=== PATIENT | male | born 1955 | race Caucasian/White ===

== ENCOUNTER → 2017-05-18 | Outpatient (CLI) | payer OTHER ==
[~2017-05-18] MED LIST: ATOR20TA15 PO; CYAN1TAB24 PO; HYDR-3516 PO; METF500T PO; METR1TAB76 PO; MOBI7.5T PO; NEOM500 PO; OMEP20TA93 PO; VICT18IN SQ
[2017-05-18 10:40] LABS: AUTOMATED NEUTROPHIL # 4.3 TH/MM3 (1.8-7.7); BASOPHIL % 0.5 % (0.0-2.0); EOSINOPHIL # 0.2 TH/MM3 (0-0.4); EOSINOPHIL % 2.4 % (0.0-4.0); HEMATOCRIT 41.1 % (39.0-51.0); HEMOGLOBIN 13.6 GM/DL (13.0-17.0); LYMPH % 27.5 % (9.0-44.0); LYMPHOCYTE # 1.9 TH/MM3 (1.0-4.8); MEAN CELL VOLUME 81.4 FL (80.0-100.0); MEAN CORPUSCULAR HGB CONC 33.2 % (32.0-36.0); MEAN PLATELET VOLUME 10.9 FL (7.0-11.0); MONO % 6.5 % (0.0-8.0); MONOCYTE # 0.4 TH/MM3 (0-0.9); NEUT % 63.1 % (16.0-70.0); PLATELET COUNT 174 TH/MM3 (150-450); RED BLOOD COUNT 5.05 MIL/MM3 (4.50-5.90); WHITE BLOOD COUNT 6.9 TH/MM3 (4.0-11.0)
--- NOTE | 2017-05-18 10:55 | RADRPT ---
EXAM DATE/TIME: 05/18/2017 10:47 [facility] COMPARISON: No previous studies available for comparison. INDICATIONS : Pre op. Evaluate for pneumonia, pneumothorax, or communicable diseases. MEDICAL HISTORY : None. SURGICAL HISTORY : None. ENCOUNTER: Initial ACUITY: 1 day PAIN SCORE: 0/10 LOCATION: Bilateral chest FINDINGS: PA and lateral views of the chest demonstrate the lungs to be symmetrically aerated without evidence of mass, infiltrate or effusion. The cardiomediastinal contours are unremarkable. Osseous structure s are intact. CONCLUSION: 1. No acute cardiopulmonary disease. Pavel Shannon MD on May 18, 2017 at 10:50 Board Certified Radiologist. This report was verified electronically.
[2017-05-18 11:11] LABS: BILIRUBIN, URINE NEG (NEG); BLOOD, URINE NEG (NEG); GLUCOSE,URINE NEG (NEG); HYALINE CAST, URINE 1 /lpf (RARE); KETONE, URINE NEG (NEG); MUCUS URINE FEW /lpf (OCC); NITRITE,URINE NEG (NEG); SQUAMOUS EPITHELIAL CELL URINE <1 /hpf (0-5); URINE COLOR YELLOW (YELLW/STRAW); URINE LEUKOCYTE ESTERASE NEG (NEG)
[2017-05-18 11:13] LABS: ALBUMIN 3.5 GM/DL (3.4-5.0); ALT (GPT) 47 U/L (12-78); AST (GOT) 21 U/L (15-37); BICARBONATE 29.6 MEQ/L (21.0-32.0); CALCIUM 8.9 MG/DL (8.5-10.1); CHLORIDE 104 MEQ/L (98-107); CREATININE 0.84 MG/DL (0.60-1.30); GLOMERULAR FILTRATION RATE 94 ML/MIN (>89); GLUCOSE,FASTING 161 MG/DL (74-99); SODIUM (NA) 139 MEQ/L (136-145)
[2017-05-18 11:21] LABS: ALKALINE PHOSPHATASE 107 U/L (45-117); BLOOD UREA NITROGEN 11 MG/DL (7-18); TOTAL BILIRUBIN ADULT 0.5 MG/DL (0.2-1.0); TOTAL PROTEIN 7.1 GM/DL (6.4-8.2)
[2017-05-18 11:33] LABS: INTERNATIONAL NORMALIZED RATIO 1.1 RATIO; PROTHROMBIN TIME - PATIENT 10.7 SEC (9.8-11.6)
--- NOTE | 2017-05-18 19:43 | EKG ---
Date Performed: 05/18/2017 Time Performed: 10:30:40 PTAGE: 61 years EKG: Sinus rhythm . Normal ECG PREVIOUS TRACING : 08/01/2004 21.16 Since previous tracing, no significant change noted DOCTOR: Sujey Moraes Interpretating Date/Time 05/18/2017 19:41:27
== END ==
LOC: CPRE 09:33
PROVIDERS: ATTEND Colon & Rectal Surgery
DX: Z01.812 Encounter for preprocedural laboratory examination (principal); Z01.811 Encounter for preprocedural respiratory examination; Z01.810 Encounter for preprocedural cardiovascular examination; C18.7 Malignant neoplasm of sigmoid colon
CPT/HCPCS: 36415; 71046; 80053; 81001; 82378; 85025; 85610; 85730; 86850; 86900; 86901; 93005

== ENCOUNTER 2017-05-20 10:25 | Inpatient (IN) | payer OTHER ==
[2017-05-20] VITALS (7 sets, daily range): BP systolic 130–145; BP diastolic 74–83; PULSE 100–108; RESP 18–20; TEMP 97–99.6; O2SAT 93–95
[~2017-05-20] VITALS: Ht 172.7 cm; Wt 116.0 kg
[~2017-05-20 10:25] MED LIST changes: -CYAN1TAB24 PO; -HYDR-3516 PO; -MOBI7.5T PO
--- NOTE | 2017-05-20 10:27 | PD.HP.UP ---
H&P Update Note The Pre-Admit History and Physical Examination regarding the above named patient was reviewed (including, but not limited to, vital signs, heart, lungs, co-morbid conditions), and upon re-examination it is noted that: the patient's condition has not significantly changed since the last examination. Salinas Barillas MD May 20, 2017 10:27
[2017-05-20] MEDS ORDERED: DEXT 5%-NACL 0.9% 1000 ML INJ 1,000 ML IV SCH (11:00)
[2017-05-20] MEDS ORDERED: METOPROLOL TARTRATE 25 MG TAB PO PRN (11:15)
[2017-05-20] MEDS ORDERED: METRONIDAZOLE 500 MG/100 ML ISONTONIC SOLN IV SCH (11:15)
[2017-05-20] MEDS ORDERED: SODIUM CHLORID 0.9% 500 ML IV PRN (11:15)
[2017-05-20] MEDS ORDERED: ceFAZolin 1,000 MG/NS 100 ML IV SCH ×2 (11:15)
[2017-05-20] MEDS ORDERED: CHLORHEXIDINE GLUCONATE 2 % 1 PACK (2 CLOTHS) TOPICAL PRN (11:15)
[2017-05-20] MEDS ORDERED: LACTATED RINGER'S 1000 ML IV PRN (11:15)
[2017-05-20] MEDS ORDERED: POVIDONE IODINE 5% (ANTISEPSIS KIT) 4 APPLICATIONS EACH NARE PRN (11:15)
[2017-05-20] MEDS ORDERED: CYAN1TAB24 PO (11:28)
[2017-05-20] MEDS ORDERED: ALVIMOPAN 12 MG CAPSULE ONE (11:43)
[2017-05-20] MEDS ORDERED: ACETAMINOPHEN 1000 MG/100 ML 100 ML IV ONE (11:53)
[2017-05-20] MEDS ORDERED: SUGAMMADEX SODIUM 200 MG/2 ML VIAL IV PUSH ONE (11:54)
[2017-05-20] MEDS ORDERED: NEOSTIGMINE 5 MG/5 ML SYRINGE IV PUSH ONE (12:00)
[2017-05-20] MEDS ORDERED: ONDANSETRON HCL 4 MG/2 ML VIAL IV ONE (12:00)
[2017-05-20] MEDS ORDERED: PHENYLEPH/NS 1000 MCG/10 ML SYR IV ONE (12:00)
[2017-05-20] MEDS ORDERED: PROPOFOL 200 MG/20 ML AMP IV ONE (12:00)
[2017-05-20] MEDS ORDERED: GLYCOPYRROLATE 1 MG/5 ML SYRINGE IV PUSH ONE (12:00)
[2017-05-20] MEDS ORDERED: SODIUM CHLORIDE 0.9% 20 ML VIAL IV ONE (12:00)
[2017-05-20] MEDS ORDERED: LACTATED RINGER'S 1000 ML INJ 1,000 ML IV ONE (12:00)
[2017-05-20] MEDS ORDERED: VECURONIUM BROMIDE 20 MG VIAL IV ONE (12:00)
[2017-05-20] MEDS ORDERED: LIDOCAINE HCL 1% PF 5 ML SYRINGE OTHER ONE (12:00)
[2017-05-20] MEDS ORDERED: ePHEDrine/NS 25 MG/5 ML SYRINGE IV ONE (12:00)
[2017-05-20] MEDS ORDERED: LABETALOL HCL 100 MG/20 ML VIAL IV ONE (12:00)
[2017-05-20] MEDS ORDERED: ROCURONIUM INJ 50 MG/5 ML SYRINGE IV PUSH ONE (12:00)
[2017-05-20] MEDS ORDERED: ALVIMOPAN 12 MG CAPSULE - On Call PO SCH (12:30)
[2017-05-20] MEDS ORDERED: diphenhydrAMINE HCL 50 MG CAP PO PRN (12:30)
[2017-05-20] MEDS ORDERED: BUPIVACAINE HCL PF 0.5% 30 ML VIAL ONE ×4 (13:12→13:13)
[2017-05-20] MEDS ORDERED: MIDAZOLAM HCL 2 MG/2 ML VIAL ONE (14:22)
[2017-05-20] MEDS ORDERED: Post-op Orders (for Pharmacy) XX ONE (16:00)
[2017-05-20] MEDS ORDERED: NALOXONE HCL 0.4 MG/ML AMP IV PUSH PRN (16:00)
[2017-05-20] MEDS ORDERED: DO NOT ADM ANY ANTICOAGULANT DRUGS PRN (16:00)
[2017-05-20] MEDS ORDERED: BUPIVACAINE HCL PF 0.5% 30 ML VIAL NB SCH (16:00)
[2017-05-20] MEDS ORDERED: KETOROLAC TROMETHAMINE 30 MG/ML (IVP) VIAL IVP PRN (16:00)
[2017-05-20] MEDS ORDERED: POTASSIUM CHLOR 20 MEQ PREMIX 100 ML IV PRN (16:00)
[2017-05-20] MEDS ORDERED: POTASSIUM CHLOR 40 MEQ PREMIX 100 ML IV PRN (16:00)
[2017-05-20] MEDS ORDERED: MORPHINE SULFATE 30 MG/30 ML PCA IV SCH (16:00)
[2017-05-20] MEDS ORDERED: ACETAMINOPHEN 325 MG TAB PO PRN (16:00)
[2017-05-20] MEDS ORDERED: ENALAPRILAT 1.25 MG/ML VIAL IV PUSH PRN (16:00)
[2017-05-20] MEDS ORDERED: BENZOCAINE 6 MG/MENTHOL 10 MG LOZENGE BUCCAL PRN (16:00)
[2017-05-20] MEDS ORDERED: hydrALAZINE HCL 20 MG/ML VIAL ONE (16:13)
[2017-05-20] MEDS ORDERED: *morphine SULFATE 10 MG/ML PERIprocedure ONLY ONE ×2 (16:13→16:29)
[2017-05-20] MEDS ORDERED: GLUCAGON 1 MG/ML VIAL OTHER PRN (16:15)
[2017-05-20] MEDS ORDERED: DEXTROSE 50% IN WATER 50 ML VIAL(D50) IV PUSH PRN (16:15)
[2017-05-20] MEDS: D5-NS + KCL 20 MEQ INJ 1,000 ML IV SCH (17:00)
[2017-05-20] MEDS ORDERED: *PROMETHAZINE 25 MG/ML VIAL PERIprocedural use ONLY ONE (17:21)
[2017-05-20] MEDS: INSULIN NovoLIN REGULAR SUPPLEMENTAL SCALE SQ SCH ×2 (18:01→20:48)
[2017-05-20] MEDS: METOCLOPRAMIDE HCL 10 MG/2 ML VIAL IVS SCH (20:38)
[2017-05-20] MEDS: metroNIDAZOLE 500 MG INJ 100 ML IV SCH (21:29)
[2017-05-20] MEDS: PCA - TOTAL MG MORPHINE DELIVERED PER SHIFT SCH (22:00)
[2017-05-21] VITALS (21 sets, daily range): BP systolic 91–182; BP diastolic 51–88; PULSE 84–108; RESP 17–20; TEMP 98–99.9; O2SAT 94–98
[2017-05-21] MEDS: D5-NS + KCL 20 MEQ INJ 1,000 ML IV SCH ×3 (00:38→20:04)
[2017-05-21 04:32] LABS: AUTOMATED NEUTROPHIL # 10.9 TH/MM3 (1.8-7.7); BASOPHIL % 0.2 % (0.0-2.0); HEMATOCRIT 38.2 % (39.0-51.0); HEMOGLOBIN 12.5 GM/DL (13.0-17.0); LYMPH % 5.4 % (9.0-44.0); LYMPHOCYTE # 0.7 TH/MM3 (1.0-4.8); MEAN CELL VOLUME 82.5 FL (80.0-100.0); MEAN CORPUSCULAR HGB CONC 32.7 % (32.0-36.0); MEAN PLATELET VOLUME 10.5 FL (7.0-11.0); MONO % 5.8 % (0.0-8.0); MONOCYTE # 0.7 TH/MM3 (0-0.9); NEUT % 88.6 % (16.0-70.0); PLATELET COUNT 171 TH/MM3 (150-450); RED BLOOD COUNT 4.63 MIL/MM3 (4.50-5.90); WHITE BLOOD COUNT 12.3 TH/MM3 (4.0-11.0)
[2017-05-21] MEDS: metroNIDAZOLE 500 MG INJ 100 ML IV SCH ×2 (04:40→11:41)
[2017-05-21 05:01] LABS: BICARBONATE 27.2 MEQ/L (21.0-32.0); CALCIUM 7.4 MG/DL (8.5-10.1); CREATININE 0.98 MG/DL (0.60-1.30)
[2017-05-21 05:23] LABS: CALCIUM-PROTEIN CORRECTED 7.8 MG/DL (8.5-10.1); TOTAL PROTEIN 6.3 GM/DL (6.4-8.2)
[2017-05-21] MEDS: PCA - TOTAL MG MORPHINE DELIVERED PER SHIFT SCH ×3 (06:00→22:00)
--- NOTE | 2017-05-21 07:50 | HHI.PR ---
Subjective Remarks C/R Surg POD #1 afebrile, VSS UO good FABIAN serous Objective - Vital Signs Date Time Temp Pulse Resp B/P (MAP) Pulse Ox O2 Delivery O2 Flow Rate FiO2 05/21/17 06:02 97 05/21/17 06:00 18 05/21/17 03:31 99.9 91/51 (64) 97 05/20/17 20:57 Nasal Cannula 3.00 Result Diagram: 05/21/1740205/21/173 Objective Remarks PE alert Abd - soft, large, wound dry, min tympany A/P Assessment and Plan Imp: stable post-op OOB tx to floor decr IVF Salinas Barillas MD May 21, 2017 07:50
[2017-05-21] MEDS: PANTOPRAZOLE SODIUM 40 MG VIAL IVP SCH (09:00)
[2017-05-21] MEDS: METOCLOPRAMIDE HCL 10 MG/2 ML VIAL IVS SCH ×2 (09:02→19:44)
[2017-05-21] MEDS: ALVIMOPAN 12 MG CAPSULE - Post-op dosing PO SCH ×2 (09:03→19:44)
[2017-05-21] MEDS: INSULIN NovoLIN REGULAR SUPPLEMENTAL SCALE SQ SCH ×4 (09:03→19:47)
[2017-05-21] MEDS: PANTOPRAZOLE SOD 40 MG DELAYED RELEASE TAB PO SCH (09:03)
[2017-05-21] MEDS ORDERED: ALVIMOPAN 12 MG CAPSULE PO SCH (21:00)
[2017-05-22] VITALS: BP 198/97; PULSE 100; RESP 20; TEMP 99.8; O2SAT 98
[2017-05-22] MEDS: ENALAPRILAT 2.5 MG/2 ML VIAL IV PUSH PRN ×3 (00:29→16:28)
[2017-05-22 04:32] VITALS: BP 180/92; PULSE 100; RESP 18; TEMP 99.9; O2SAT 96
[2017-05-22] MEDS: PCA - TOTAL MG MORPHINE DELIVERED PER SHIFT SCH ×3 (05:31→21:46)
[2017-05-22] MEDS: D5-NS + KCL 20 MEQ INJ 1,000 ML IV SCH ×2 (05:33→17:45)
[2017-05-22 07:32] LABS: AUTOMATED NEUTROPHIL # 8.5 TH/MM3 (1.8-7.7); BASOPHIL % 0.4 % (0.0-2.0); EOSINOPHIL % 0.1 % (0.0-4.0); HEMATOCRIT 35.6 % (39.0-51.0); HEMOGLOBIN 11.8 GM/DL (13.0-17.0); LYMPH % 11.4 % (9.0-44.0); LYMPHOCYTE # 1.2 TH/MM3 (1.0-4.8); MEAN CELL VOLUME 82.1 FL (80.0-100.0); MEAN CORPUSCULAR HEMOGLOBIN 27.3 PG (27.0-34.0); MEAN CORPUSCULAR HGB CONC 33.3 % (32.0-36.0); MEAN PLATELET VOLUME 10.7 FL (7.0-11.0); MONO % 8.2 % (0.0-8.0); MONOCYTE # 0.9 TH/MM3 (0-0.9); NEUT % 79.9 % (16.0-70.0); PLATELET COUNT 151 TH/MM3 (150-450); RED BLOOD COUNT 4.33 MIL/MM3 (4.50-5.90); RED CELL DISTRIBUTION WIDTH 15.2 % (11.6-17.2); WHITE BLOOD COUNT 10.6 TH/MM3 (4.0-11.0)
[2017-05-22 08:00] VITALS: BP 192/101; PULSE 97; RESP 18; TEMP 97.9; O2SAT 96
[2017-05-22] MEDS: PANTOPRAZOLE SODIUM 40 MG VIAL IVP SCH (08:42)
[2017-05-22] MEDS: INSULIN NovoLIN REGULAR SUPPLEMENTAL SCALE SQ SCH ×4 (08:47→21:45)
[2017-05-22] MEDS: FUROSEMIDE 20 MG/2 ML VIAL IV PUSH SCH ×2 (08:47→21:45)
[2017-05-22] MEDS: METOCLOPRAMIDE HCL 10 MG/2 ML VIAL IVS SCH ×2 (08:48→21:44)
[2017-05-22] MEDS: ALVIMOPAN 12 MG CAPSULE - Post-op dosing PO SCH ×2 (08:49→21:46)
[2017-05-22] MEDS: PANTOPRAZOLE SOD 40 MG DELAYED RELEASE TAB PO SCH (08:49)
[2017-05-22 08:51] LABS: BICARBONATE 29.2 MEQ/L (21.0-32.0); CREATININE 0.75 MG/DL (0.60-1.30)
[2017-05-22 12:00] VITALS: BP 176/86; PULSE 97; RESP 18; TEMP 98; O2SAT 93
[2017-05-22 16:00] VITALS: BP 179/91; PULSE 93; RESP 19; TEMP 97.7; O2SAT 95
--- NOTE | 2017-05-22 17:34 | HHI.PR ---
Subjective Remarks C/R Surg POD #2 afebrile, VSS - Bp high UO good FABIAN serous Objective - Vital Signs Date Time Temp Pulse Resp B/P (MAP) Pulse Ox O2 Delivery O2 Flow Rate FiO2 05/22/17 16:00 97.7 93 19 179/91 (120) 95 05/21/17 07:49 Nasal Cannula 3.00 Result Diagram: 05/22/17 0542 05/22/17 0542 Objective Remarks PE alert Abd - soft, large, wound dry, min tympany no flatus A/P Assessment and Plan Imp: OOB decr IVF adv diet Salinas Barillas MD May 22, 2017 17:34
[2017-05-22 20:00] VITALS: BP 115/78; PULSE 114; RESP 18; TEMP 99.6; O2SAT 92
[2017-05-22] MEDS: HEPARIN SODIUM - SQ 10,000 UNITS/ML VIAL SQ SCH (21:46)
[2017-05-22] MEDS: ACETAMINOPHEN/HYDROcodone 325 MG/5 MG TAB PO PRN (21:48)
[2017-05-23] VITALS (8 sets, daily range): BP systolic 130–183; BP diastolic 77–93; PULSE 79–109; RESP 15–20; TEMP 98–100.1; O2SAT 91–97
[2017-05-23] MEDS: ACETAMINOPHEN/HYDROcodone 325 MG/5 MG TAB PO PRN ×2 (03:03→08:40)
[2017-05-23] MEDS: PCA - TOTAL MG MORPHINE DELIVERED PER SHIFT SCH ×3 (06:00→22:00)
--- NOTE | 2017-05-23 06:37 | HHI.PR ---
Subjective Remarks POD#3 s/p LAR comfortable, passing stool, wants to go home Objective Vital Signs Date Time Temp Pulse Resp B/P (MAP) Pulse Ox O2 Delivery O2 Flow Rate FiO2 05/23/17 04:00 99.1 95 18 130/77 (94) 96 05/23/17 00:00 100.1 95 18 163/92 (115) 95 05/22/17 21:46 16 05/22/17 20:00 99.6 114 18 115/78 (90) 92 05/22/17 16:00 97.7 93 19 179/91 (120) 95 05/22/17 12:00 98.0 97 18 176/86 (116) 93 05/22/17 08:00 97.9 97 18 192/101 (131) 96 I/O 05/22/17 05/22/17 05/22/17 05/23/17 05/23/17 05/23/17 07:00 15:00 23:00 07:00 15:00 23:00 Intake Total 1000 ml 0 ml 360 ml Output Total 1550 ml 40 ml 3075 ml 1550 ml Balance -550 ml -40 ml -3075 ml -1190 ml Intake Oral 0 ml 360 ml IV Total 1000 ml Output Urine Total 1500 ml 3000 ml 1550 ml Drainage Total 50 ml 40 ml 75 ml # Bowel Movements 0 2 Result Diagram: 05/22/17 0542 05/22/17 0542 Objective Remarks Abdomen soft, nondistended, tender Wound clean FABIAN serous Assessment and Plan Assessment and Plan Doing well Home today followup with Dr. Barillas 2 weeks Tiffanie Guardado MD May 23, 2017 06:37
[2017-05-23] MEDS ORDERED: HYDR-3516 PO (06:40)
[2017-05-23] MEDS: INSULIN NovoLIN REGULAR SUPPLEMENTAL SCALE SQ SCH ×3 (08:37→16:55)
[2017-05-23] MEDS: FUROSEMIDE 20 MG/2 ML VIAL IV PUSH SCH (08:38)
[2017-05-23] MEDS: PANTOPRAZOLE SODIUM 40 MG VIAL IVP SCH (08:38)
[2017-05-23] MEDS: METOCLOPRAMIDE HCL 10 MG/2 ML VIAL IVS SCH (08:39)
[2017-05-23] MEDS: ALVIMOPAN 12 MG CAPSULE - Post-op dosing PO SCH ×2 (08:40→21:00)
[2017-05-23] MEDS: PANTOPRAZOLE SOD 40 MG DELAYED RELEASE TAB PO SCH (08:41)
[2017-05-23] MEDS: HEPARIN SODIUM - SQ 10,000 UNITS/ML VIAL SQ SCH (08:43)
[2017-05-23] MEDS: D5-NS + KCL 20 MEQ INJ 1,000 ML IV SCH (08:45)
[2017-05-23] MEDS: ENALAPRILAT 2.5 MG/2 ML VIAL IV PUSH PRN (17:11)
[2017-05-24] VITALS: BP 181/105; PULSE 101; RESP 20; TEMP 99.6; O2SAT 95
[2017-05-24] MEDS: INSULIN NovoLIN REGULAR SUPPLEMENTAL SCALE SQ SCH ×5 (00:17→22:30)
[2017-05-24] MEDS: METOCLOPRAMIDE HCL 10 MG/2 ML VIAL IVS SCH ×3 (00:19→22:25)
[2017-05-24] MEDS: FUROSEMIDE 20 MG/2 ML VIAL IV PUSH SCH ×3 (00:21→22:24)
[2017-05-24] MEDS: HEPARIN SODIUM - SQ 10,000 UNITS/ML VIAL SQ SCH ×3 (00:24→22:28)
[2017-05-24] MEDS: D5-NS + KCL 20 MEQ INJ 1,000 ML IV SCH ×2 (00:37→17:23)
[2017-05-24 02:23] VITALS: BP 173/87; PULSE 90; RESP 20; O2SAT 91
[2017-05-24] MEDS: PCA - TOTAL MG MORPHINE DELIVERED PER SHIFT SCH ×3 (06:00→22:00)
[2017-05-24 08:00] VITALS: BP 175/95; PULSE 89; RESP 17; TEMP 99.9; O2SAT 93
[2017-05-24] MEDS: ENALAPRILAT 2.5 MG/2 ML VIAL IV PUSH PRN ×2 (08:56→10:26)
[2017-05-24] MEDS: ALVIMOPAN 12 MG CAPSULE - Post-op dosing PO SCH ×2 (08:57→22:21)
[2017-05-24] MEDS: PANTOPRAZOLE SOD 40 MG DELAYED RELEASE TAB PO SCH (08:57)
[2017-05-24] MEDS: PANTOPRAZOLE SODIUM 40 MG VIAL IVP SCH (09:00)
--- NOTE | 2017-05-24 11:26 | HHI.PR ---
Subjective Remarks POD#4 s/p LAR comfortable, passing stool [place] replaced yesterday for inability to urinate Objective Vital Signs Date Time Temp Pulse Resp B/P (MAP) Pulse Ox O2 Delivery O2 Flow Rate FiO2 05/24/17 08:00 99.9 89 17 175/95 (121) 93 05/24/17 06:00 20 05/24/17 02:23 90 20 173/87 (115) 91 05/24/17 00:00 99.6 101 20 181/105 (130) 95 05/23/17 22:00 20 05/23/17 20:19 99.4 92 20 140/84 (102) 97 05/23/17 20:00 100.0 109 20 183/84 (117) 91 05/23/17 17:03 180/88 (118) 05/23/17 16:00 98.7 88 16 164/87 (112) 95 05/23/17 12:00 98.0 79 15 157/93 (114) 94 I/O 05/23/17 05/23/17 05/23/17 05/24/17 05/24/17 05/24/17 07:00 15:00 23:00 07:00 15:00 23:00 Intake Total 360 ml 1200 ml 180 ml Output Total 1600 ml 30 ml 700 ml 1000 ml Balance -1240 ml -30 ml 500 ml -820 ml Intake Oral 360 ml 1200 ml 180 ml Output Urine Total 1550 ml 700 ml 1000 ml Drainage Total 50 ml 30 ml Bladder Scan Volume Amount 431 ml # Bowel Movements 2 3 Result Diagram: 05/22/17 0542 05/22/17 0542 Objective Remarks Abdomen soft, nondistended, tender Wound clean Assessment and Plan Assessment and Plan Continue [place] for now May need [place] at home Tiffanie Guardado MD May 24, 2017 11:26
[2017-05-24 12:00] VITALS: BP 174/85; PULSE 95; RESP 16; TEMP 99.7; O2SAT 96
[2017-05-24] MEDS: ONDANSETRON HCL 4 MG/2 ML VIAL IV PUSH PRN (14:28)
[2017-05-24 16:00] VITALS: BP 157/85; PULSE 84; RESP 16; TEMP 99.2; O2SAT 94
[2017-05-24] MEDS: ACETAMINOPHEN/HYDROcodone 325 MG/5 MG TAB PO PRN ×2 (16:50→22:22)
[2017-05-24 20:00] VITALS: BP 154/78; PULSE 86; RESP 20; TEMP 99.3; O2SAT 95
[2017-05-25 00:49] VITALS: BP 145/76; PULSE 81; RESP 20; TEMP 98.8; O2SAT 97
[2017-05-25] MEDS: PCA - TOTAL MG MORPHINE DELIVERED PER SHIFT SCH (06:00)
[2017-05-25] MEDS: ONDANSETRON HCL 4 MG/2 ML VIAL IV PUSH PRN (06:43)
[2017-05-25] MEDS: D5-NS + KCL 20 MEQ INJ 1,000 ML IV SCH (07:41)
[2017-05-25 08:00] VITALS: BP 178/106; PULSE 100; RESP 17; TEMP 96.3; O2SAT 95
[2017-05-25] MEDS: METOCLOPRAMIDE HCL 10 MG/2 ML VIAL IVS SCH (08:48)
[2017-05-25] MEDS: HEPARIN SODIUM - SQ 10,000 UNITS/ML VIAL SQ SCH (08:49)
[2017-05-25] MEDS: ALVIMOPAN 12 MG CAPSULE - Post-op dosing PO SCH (08:49)
[2017-05-25] MEDS: PANTOPRAZOLE SOD 40 MG DELAYED RELEASE TAB PO SCH (08:49)
[2017-05-25] MEDS: FUROSEMIDE 20 MG/2 ML VIAL IV PUSH SCH (08:49)
[2017-05-25] MEDS: INSULIN NovoLIN REGULAR SUPPLEMENTAL SCALE SQ SCH (08:56)
[2017-05-25] MEDS: PANTOPRAZOLE SODIUM 40 MG VIAL IVP SCH (09:00)
--- NOTE | 2017-05-25 09:26 | HHI.FF ---
Face to Face Verification Diagnosis: (1) Cancer of rectosigmoid (colon) Physical Therapy Order: Evaluate and Treat, Improve ambulation, Strength and gait training Home Health Nursing Order: Medical education Signs/symptoms of disease process Wound care and dressing changes [place] catheter maintenance Instructions: [place] care I have seen patient Demetri Holland on 05/25/17. My clinical findings support the need for the requested home health care services because: Deconditioned w/ increased weakness Limited ability to care for self Infection w/ risk of complications I certify that my clinical findings support that this patient is homebound because: Post-op weakness Unable to use public transportation Salinas Barillas MD May 25, 2017 09:26
[2017-05-25 10:13] LABS: BILIRUBIN, URINE NEG (NEG); BLOOD, URINE NEG (NEG); GLUCOSE,URINE NEG (NEG); HYALINE CAST, URINE 10 /lpf (RARE); KETONE, URINE 10 mg/dL (NEG); MUCUS URINE FEW /lpf (OCC); NITRITE,URINE NEG (NEG); SQUAMOUS EPITHELIAL CELL URINE <1 /hpf (0-5); URINE COLOR LIGHT-YELLOW (YELLW/STRAW); URINE LEUKOCYTE ESTERASE NEG (NEG)
--- NOTE | 2017-05-31 09:53 | MP ---
cc: ANTOLIN GODDARD M.D. DATE OF SURGERY: 05/20/2017 PREOPERATIVE DIAGNOSIS: Cancer of the rectosigmoid. PROCEDURE: Exploratory laparotomy with proctosigmoidectomy and low pelvic anastomosis, intraoperative colonoscopy. POSTOPERATIVE DIAGNOSIS: 1. Ulcerated cancer of the distal sigmoid. 2. Very long redundant colon. 3. Normal cecum and ascending colon. SURGEON: Dr. Antolin Goddard. LABORER TREE TAPPING: Dr. Francisco Lagos. PROCEDURE: The patient was placed in supine position. After adequate general anesthesia, his legs were placed Crossett stirrups and supported appropriately. The abdomen, perineum were then prepped with Betadine solution and draped in the usual sterile fashion. With Dr. Lagos's assistance the abdomen was opened through a long infraumbilical transverse incision dividing the rectus muscles with electrocautery. Exploration revealed a very redundant colon, especially in the transverse and sigmoid. The colon was palpated very carefully and no discrete tumor was easily evident. The small bowel was run from the ligament of Treitz down to the ileocecal valve and the patient had a previous gastric bypass so the bowel did go through the mesentery of the transverse colon but was otherwise unremarkable. The stomach was pretty unremarkable. The liver and gallbladder were normal to palpation. The great vessels were of normal caliber only mildly calcified. First the sigmoid colon was mobilized medially by dividing along the white line of Toldt. The left ureter was identified and carefully preserved. Dissection then proceeded up the left gutter mobilizing the left colon off the retroperitoneum. Again attempts to identify the tumor were somewhat unsuccessful so Dr. Lagos inserted the colonoscope and under direct vision he was able to visualize the tumor in the distal sigmoid and proximal rectum, and it was marked with a Vicryl suture. The right retroperitoneal space as then opened and the bowel dissected off the presacral fascia down toward the pelvic floor preserving the presacral nerves. After full mobilization, a point was chosen adequately below the tumor, opening up the cul-de-sac anteriorly for additional mobilization. The mesorectum was then taken with electrocautery and Vicryl ties and the bowel finally divided using a TA stapling device and a Davonte clamp. The pedicle for the superior hemorrhoidal vessels was taken between Kellys obtaining hemostasis with Vicryl ties. Due to the redundancy the left colon was mobilized but the left colic vessels were able to be left intact. The colon was then sized to reach the rectal pouch without tension and with good blood supply, dividing the marginal artery at the appropriate point and dividing the bowel between a pursestring suture device and a Davonte clamp removing the specimen. The end of bowel was sized to accept an EEA stapling anvil and this was secured with a pursestring suture. Dr. Lagos then inserted the EEA stapling instrument and under direct vision it was brought up to the end of the rectal pouch and the trocar advanced. The stapler was then reassembled, the bowel aligned properly and the staple closed and fired upon withdrawal, two complete doughnuts of tissue were seen. Dr. Lagos inserted the colonoscope and with additional intra-abdominal assistance the scope was passed through a fairly redundant colon until the cecum was seen. The previous polypectomy site was not very evident and no other signs of polyps were noted throughout the cecum. The colonoscope was then gradually withdrawn noting no other polyps throughout the colon. Upon withdrawal insufflation confirmed an airtight anastomosis. The abdomen was then irrigated copiously with normal saline. Adequate hemostasis achieved at all sites. Cole-Early drain was placed down into the presacral space and brought up through a stab wound in the right lower quadrant secured to the skin with a nylon suture. Transverse incision was then closed anatomically in two layers using #1 PDS sutures to reapproximate the respective fascial layers. OnQ catheters were placed into the rectus sheath on both sides and brought up through subcutaneous tunnels above the transverse incision. The subcu tissues irrigated copiously and the skin closed with a running subcuticular Vicryl suture. Wound area washed with normal saline and dried, sterile dressing of Telfa and gauze applied. The patient tolerated the procedure quite well and was brought to the recovery room in stable condition. Sponge and needle counts were correct at the end of the procedure. MD ROCHELLE Wayne/DANDY /8:44 PM /9:39 AM
== END 2017-05-25 11:48 | disposition home health service (06) | DRG 330 ==
LOC: HSDI 10:25 → EDSTATUS 13:00 → HCPC 19:14 → N07B 05-21 18:07
PROVIDERS: ADMIT Colon & Rectal Surgery; ATTEND Colon & Rectal Surgery
PROC: 0DTN0ZZ Resection of Sigmoid Colon, Open Approach (ICD-10-PCS; 2017-05-20)
PROC: 0DBP0ZZ Excision of Rectum, Open Approach (ICD-10-PCS; 2017-05-20)
PROC: 0DJD8ZZ Inspection of Lower Intestinal Tract, Via Natural or Artificial Opening Endoscopic (ICD-10-PCS; 2017-05-20)
PROC: 0T9B70Z Drainage of Bladder with Drainage Device, Via Natural or Artificial Opening (ICD-10-PCS; principal; 2017-05-23)
DX: C19 Malignant neoplasm of rectosigmoid junction (principal); Q43.8 Other specified congenital malformations of intestine; I10 Essential (primary) hypertension; K21.9 Gastro-esophageal reflux disease without esophagitis; E11.9 Type 2 diabetes mellitus without complications; R33.9 Retention of urine, unspecified; G47.30 Sleep apnea, unspecified; Z87.891 Personal history of nicotine dependence; Z79.84 Long term (current) use of oral hypoglycemic drugs; Z98.84 Bariatric surgery status
CPT/HCPCS: 80048; 81001; 82948; 84155; 85025; 88309; 94150; J0131; J0360; J0690; J1644; J1940; J2250; J2270; J2370; J2405; J2550; J2710; J2765; J3010; J3480; J7120

== ENCOUNTER 2017-05-28 13:26 | Inpatient (IN) | payer OTHER ==
[~2017-05-28] VITALS: Ht 172.7 cm; Wt 113.3 kg
[~2017-05-28 13:26] MED LIST changes: +HYDR-3516 PO; -METR1TAB76 PO; -NEOM500 PO
[2017-05-28] MEDS ORDERED: IOHEXOL 350 MG/ML 10 ML VIAL (for RAD DIAG) IVCONTRAST ONE (13:35)
[2017-05-28 14:58] LABS: AUTOMATED NEUTROPHIL # 11.8 TH/MM3 (1.8-7.7); BASOPHIL # 0.1 TH/MM3 (0-0.2); BASOPHIL % 0.4 % (0.0-2.0); EOSINOPHIL % 0.1 % (0.0-4.0); HEMATOCRIT 40.3 % (39.0-51.0); HEMOGLOBIN 13.5 GM/DL (13.0-17.0); LYMPH % 8.6 % (9.0-44.0); LYMPHOCYTE # 1.2 TH/MM3 (1.0-4.8); MEAN CELL VOLUME 81.9 FL (80.0-100.0); MEAN CORPUSCULAR HEMOGLOBIN 27.4 PG (27.0-34.0); MEAN CORPUSCULAR HGB CONC 33.5 % (32.0-36.0); MEAN PLATELET VOLUME 9.4 FL (7.0-11.0); MONO % 7.1 % (0.0-8.0); NEUT % 83.8 % (16.0-70.0); PLATELET COUNT 295 TH/MM3 (150-450); RED BLOOD COUNT 4.92 MIL/MM3 (4.50-5.90); RED CELL DISTRIBUTION WIDTH 14.9 % (11.6-17.2)
[2017-05-28] MEDS ORDERED: SODIUM CHLOR 0.9% 1000 ML INJ 1,000 ML IV SCH (15:15)
[2017-05-28 15:20] LABS: BICARBONATE 29.5 MEQ/L (21.0-32.0); CALCIUM 8.6 MG/DL (8.5-10.1); CREATININE 1.17 MG/DL (0.60-1.30)
--- NOTE | 2017-05-28 15:38 | RADRPT ---
EXAM DATE/TIME: 05/28/2017 15:06 [facility] COMPARISON: No previous studies available for comparison. INDICATIONS : Ileus. MEDICAL HISTORY : Carcinoma, colon. SURGICAL HISTORY : Colon resection. Gastric bypass. ENCOUNTER: Initial ACUITY: 1 day PAIN SCORE: 0/10 LOCATION: abdomen FINDINGS: Multiple AP views of the abdomen were obtained and demonstrate gaseous dilatation of the colon greate st in the cecal region measuring up to approximately 10-11 cm. There is no free air. The bony structu res are intact. The lung bases are clear. CONCLUSION: Gaseous dilatation of colon most characteristic of an ileus. Shad Rico MD on May 28, 2017 at 15:33 Board Certified Radiologist. This report was verified electronically.
[2017-05-28 16:00] VITALS: BP 161/82; PULSE 84; RESP 17; TEMP 98.4; O2SAT 95
[2017-05-28] MEDS: METOCLOPRAMIDE HCL 10 MG/2 ML VIAL IV SCH ×2 (16:12→20:34)
[2017-05-28] MEDS ORDERED: SODIUM CHLORID 0.9% 500 ML INJ 500 ML IV ONE (18:15)
[2017-05-28] MEDS: NS + KCL 20 MEQ INJ 1,000 ML IV SCH (18:26)
[2017-05-28 19:38] VITALS: BP 125/68; PULSE 85; RESP 19; TEMP 98.7; O2SAT 93
[2017-05-28 19:40] LABS: AMORPHOUS SEDIMENT, URINE OCC; BILIRUBIN, URINE NEG (NEG); BLOOD, URINE MOD (NEG); GLUCOSE,URINE 70 mg/dL (NEG); KETONE, URINE 10 mg/dL (NEG); MUCUS URINE MOD /lpf (OCC); NITRITE,URINE NEG (NEG); PH, URINE 6.5 (5.0-8.5); SQUAMOUS EPITHELIAL CELL URINE <1 /hpf (0-5); URINE COLOR YELLOW (YELLW/STRAW); URINE LEUKOCYTE ESTERASE LARGE (NEG)
[2017-05-28] MEDS: LEVOFLOXACIN 500 MG PREMIX INJ 100 ML IV SCH (22:00)
[2017-05-28 23:59] VITALS: BP 127/68; PULSE 83; RESP 18; TEMP 98.9; O2SAT 94
[2017-05-29] MEDS: NS + KCL 20 MEQ INJ 1,000 ML IV SCH ×3 (00:36→15:11)
[2017-05-29 03:53] VITALS: BP 142/81; PULSE 89; RESP 18; TEMP 97.9; O2SAT 94
[2017-05-29] MEDS: METOCLOPRAMIDE HCL 10 MG/2 ML VIAL IV SCH ×4 (04:14→22:17)
[2017-05-29 08:00] VITALS: BP 147/88; PULSE 96; RESP 16; TEMP 96.5; O2SAT 94
[2017-05-29] MEDS ORDERED: PANTOPRAZOLE SODIUM 40 MG VIAL IV PUSH SCH (09:00)
--- NOTE | 2017-05-29 10:14 | HHI.PR ---
Subjective Remarks C/R Surg afebrile, VSS UO goo after [place] replaced +BM Objective - Vital Signs Date Time Temp Pulse Resp B/P (MAP) Pulse Ox O2 Delivery O2 Flow Rate FiO2 05/29/17 08:06 Room Air 05/29/17 08:00 96.5 96 16 147/88 (215) 94 Result Diagram: 05/28/17 1444 05/28/17 1444 Objective Remarks PE alert Abd - softer, still tympany A/P Assessment and Plan Imp: check urine cx Ab's adv diet Salinas Barillas MD May 29, 2017 10:14
--- NOTE | 2017-05-29 10:59 | MH ---
cc: ANTOLIN GODDARD M.D. DATE OF ADMISSION 05/28/2017 REASON FOR ADMISSION Abdominal distension, anorexia and decreased urine output. HISTORY OF PRESENT ILLNESS Mr. Holland is a 61-year-old male status post exploratory laparotomy and low anterior resection on the May 20, 2017 for a T2, N0, M0 cancer. The patient did well after surgery. He was discharged home eating and having good bowel movements. He did have a Aponte catheter inserted for some urinary retention. The patient did well for a few days at home, however he was seen in the office today noting decreased appetite for the last several days with decreased bowel movements and very little flatus. Urine output to the catheter has been very cloudy and in minimal amounts. He says he has been drinking, but not having any solid food. Denied any fever. No rectal bleeding. Complains of abdominal distension and cramps. The patient was evaluated in the office and found to have significant distension of his abdomen with an ileus pattern and was admitted for IV fluids and further evaluation of his Aponte catheter and urine output. Please see the previous admission for past medical and surgical history. PERTINENT PHYSICAL This is a very pleasant large male in no acute distress. HEENT: Remarkable for very dry but pink membranes, nonicteric sclera. NECK: Supple without gross adenopathy. CHEST: Relatively diminished in the bases, clear anteriorly. HEART: Regular rhythm. ABDOMEN: Grossly enlarged, quite tympanic, not really tender, incision is healing well. Very little induration or thickening. No drainage or discharge. RECTAL: Exam revealed good tone. No masses or tenderness and no stool in the vault. EXTREMITIES: No cyanosis or clubbing and trace 1+ pedal edema. IMPRESSION Ileus status post proctosigmoidectomy. The patient will be admitted for IV fluids. Blood work and checking a flat and upright abdomen to see if he has gastric distension versus colonic distension. Aponte catheter will be changed since it is only a 14-Togolese catheter and will monitor his urine output as fluid resuscitation proceeds. MD ROCHELLE Wayne/JACLYN /10:14 AM /10:31 AM
[2017-05-29 11:40] LABS: AUTOMATED NEUTROPHIL # 8.8 TH/MM3 (1.8-7.7); BASOPHIL % 0.1 % (0.0-2.0); EOSINOPHIL # 0.1 TH/MM3 (0-0.4); EOSINOPHIL % 0.7 % (0.0-4.0); HEMOGLOBIN 11.6 GM/DL (13.0-17.0); LYMPH % 8.4 % (9.0-44.0); LYMPHOCYTE # 0.9 TH/MM3 (1.0-4.8); MEAN CELL VOLUME 81.2 FL (80.0-100.0); MEAN CORPUSCULAR HEMOGLOBIN 27.7 PG (27.0-34.0); MEAN CORPUSCULAR HGB CONC 34.1 % (32.0-36.0); MEAN PLATELET VOLUME 9.2 FL (7.0-11.0); MONO % 6.2 % (0.0-8.0); MONOCYTE # 0.6 TH/MM3 (0-0.9); NEUT % 84.6 % (16.0-70.0); PLATELET COUNT 185 TH/MM3 (150-450); RED BLOOD COUNT 4.19 MIL/MM3 (4.50-5.90); RED CELL DISTRIBUTION WIDTH 14.9 % (11.6-17.2); WHITE BLOOD COUNT 10.4 TH/MM3 (4.0-11.0)
[2017-05-29 11:53] LABS: BICARBONATE 28.5 MEQ/L (21.0-32.0); CALCIUM 8.1 MG/DL (8.5-10.1); CREATININE 1.04 MG/DL (0.60-1.30)
[2017-05-29 12:00] VITALS: BP 137/93; PULSE 97; RESP 16; TEMP 98.9; O2SAT 94
[2017-05-29] MEDS ORDERED: PANTOPRAZOLE SODIUM 40 MG VIAL IV PUSH PRN (14:45)
[2017-05-29] MEDS ORDERED: DEXTROSE 50% IN WATER 50 ML VIAL(D50) IV PUSH PRN (14:45)
[2017-05-29] MEDS ORDERED: GLUCAGON 1 MG/ML VIAL OTHER PRN (14:45)
[2017-05-29] MEDS: LOW DOSE INSULIN NOVOLIN REGULAR SUPPLEMENTAL SCALE SQ SCH ×2 (15:10→23:00)
[2017-05-29] MEDS: POTASSIUM CHLORIDE 20 MEQ CONTROLLED RELEASE TAB PO SCH ×2 (15:11→22:16)
[2017-05-29 16:00] VITALS: BP 169/97; PULSE 85; RESP 15; TEMP 98.7; O2SAT 94
[2017-05-29] MEDS ORDERED: FUROSEMIDE 20 MG/2 ML VIAL IV PUSH ONE (16:30)
[2017-05-29 19:30] VITALS: BP 177/77; PULSE 84; RESP 17; TEMP 100.4; O2SAT 94
[2017-05-29] MEDS: metFORMIN HCL 500 MG TAB PO SCH (22:16)
[2017-05-29] MEDS: cloNIDine HCL 0.1 MG TAB PO PRN (22:16)
[2017-05-29] MEDS: LEVOFLOXACIN 500 MG PREMIX INJ 100 ML IV SCH (22:16)
[2017-05-29] MEDS: ATORVASTATIN 20 MG TAB PO SCH (22:17)
[2017-05-30] VITALS: BP 135/75; PULSE 83; RESP 16; TEMP 98.9; O2SAT 95
[2017-05-30] MEDS: METOCLOPRAMIDE HCL 10 MG/2 ML VIAL IV SCH ×4 (03:49→21:21)
[2017-05-30 04:00] VITALS: BP 160/92; PULSE 87; RESP 17; TEMP 99.6; O2SAT 95
[2017-05-30] MEDS: POTASSIUM CHLORIDE 20 MEQ CONTROLLED RELEASE TAB PO SCH ×2 (06:56→15:01)
[2017-05-30] MEDS: LOW DOSE INSULIN NOVOLIN REGULAR SUPPLEMENTAL SCALE SQ SCH ×3 (07:00→22:56)
[2017-05-30 07:44] VITALS: BP 152/85; PULSE 85; RESP 18; TEMP 98.4; O2SAT 95
[2017-05-30] MEDS: metFORMIN HCL 500 MG TAB PO SCH ×2 (08:18→14:59)
[2017-05-30] MEDS: PANTOPRAZOLE SOD 40 MG DELAYED RELEASE TAB PO SCH (08:18)
[2017-05-30] MEDS: NS + KCL 20 MEQ INJ 1,000 ML IV SCH (08:24)
[2017-05-30] MEDS ORDERED: PANTOPRAZOLE SOD 20 MG DELAYED RELEASE TAB PO SCH (09:00)
[2017-05-30 11:11] VITALS: BP 156/94; PULSE 83; RESP 1; TEMP 99; O2SAT 95
[2017-05-30] MEDS: cloNIDine HCL 0.1 MG TAB PO PRN (11:14)
[2017-05-30] MEDS: RESP: ALBUTEROL 2.5 MG/3 ML NEB (SCH) INH ×3 (12:00→19:56)
[2017-05-30 12:04] LABS: HEMATOCRIT 35.4 % (39.0-51.0); HEMOGLOBIN 11.9 GM/DL (13.0-17.0); MEAN CELL VOLUME 81.5 FL (80.0-100.0); MEAN CORPUSCULAR HEMOGLOBIN 27.4 PG (27.0-34.0); MEAN CORPUSCULAR HGB CONC 33.7 % (32.0-36.0); MEAN PLATELET VOLUME 9.6 FL (7.0-11.0); PLATELET COUNT 230 TH/MM3 (150-450); RED BLOOD COUNT 4.34 MIL/MM3 (4.50-5.90); RED CELL DISTRIBUTION WIDTH 15.5 % (11.6-17.2); WHITE BLOOD COUNT 10.2 TH/MM3 (4.0-11.0)
[2017-05-30 12:39] LABS: BICARBONATE 27.2 MEQ/L (21.0-32.0); CALCIUM 8.2 MG/DL (8.5-10.1); CREATININE 0.86 MG/DL (0.60-1.30)
[2017-05-30] MEDS ORDERED: SOD PHOSPHATE/SOD BIPHOSPHATE (ADULT) ENEMA 133ML RECTAL ONE (13:30)
[2017-05-30] MEDS ORDERED: POTASSIUM CHLOR 40 MEQ PREMIX 100 ML IV PRN ×2 (14:15→18:00)
--- NOTE | 2017-05-30 14:23 | RADRPT ---
EXAM DATE/TIME: 05/30/2017 13:49 [facility] COMPARISON: ABDOMEN FLAT & UPRIGHT, May 28, 2017, 15:06. INDICATIONS : Post-operative ileus, rectal anastomosis. IV CONTRAST: 98 cc Omnipaque 350 (iohexol) IV ORAL CONTRAST: No oral contrast ingested. RADIATION DOSE: 16.65 CTDIvol (mGy) MEDICAL HISTORY : Carcinoma, colon. Hypertension. Gastroesophageal reflux disease. SURGICAL HISTORY : Appendectomy. Gastric bypass. Colon resection. ENCOUNTER: Initial ACUITY: 1 day PAIN SCALE: 0/10 LOCATION: Bilateral abdomen. TECHNIQUE: Volumetric scanning of the abdomen and pelvis was performed. Using automated exposure control and ad justment of the mA and/or kV according to patient size, radiation dose was kept as low as reasonably achievable to obtain optimal diagnostic quality images. DICOM format image data is available electro nically for review and comparison. FINDINGS: LOWER LUNGS: Tiny pleural effusions and minimal bibasilar densities, likely atelectasis. LIVER: Homogeneous density without lesion. There is no dilation of the biliary tree. No calcified gallston es. SPLEEN: Normal size without lesion. PANCREAS: Within normal limits. KIDNEYS: Normal in size and shape. There is no mass, stone or hydronephrosis. ADRENAL GLANDS: Within normal limits. VASCULAR: There is no aortic aneurysm. BOWEL/MESENTERY: Markedly gaseous distention of the entire colon. Small amount of ascites. Anastomotic sutures in the rectosigmoid colon. There is no free intraperitoneal air or fluid. Gastric bypass. ABDOMINAL WALL: Within normal limits. RETROPERITONEUM: There is no lymphadenopathy. BLADDER: Aponte catheter present. REPRODUCTIVE: Within normal limits. INGUINAL: There is no lymphadenopathy or hernia. MUSCULOSKELETAL: Within normal limits for patient age. CONCLUSION: 1. Markedly gaseous distention of the colon likely ileus status post rectosigmoid anastomosis. This s eems more prominent from previous study. Rectal tube may be warranted. 2. Small ascites. 3. Tiny pleural effusions and bibasilar atelectasis. 4. Gastric bypass a small hiatal hernia. 5. Tiny pericardial effusion Kenny Rainey MD on May 30, 2017 at 14:15 Board Certified Radiologist. This report was verified electronically.
[2017-05-30] MEDS ORDERED: POTASSIUM CHLOR 40 MEQ PREMIX 100 ML IV ONE (14:30)
[2017-05-30] MEDS: POTASSIUM CHLORIDE INJ 30 MEQ in SODIUM CHLOR 0.9% 1000 ML INJ 1,000 ML IV SCH (15:02)
[2017-05-30] MEDS: POTASSIUM CHLOR 20 MEQ PREMIX 100 ML IV SCH ×2 (15:37→17:30)
[2017-05-30 16:31] VITALS: BP 142/77; PULSE 77; RESP 18; TEMP 98.4; O2SAT 98
[2017-05-30 20:00] VITALS: BP 149/89; PULSE 89; RESP 16; TEMP 98.2; O2SAT 97
[2017-05-30] MEDS: POTASSIUM CHLOR 20 MEQ PREMIX 100 ML IV PRN ×2 (20:48→22:53)
[2017-05-30] MEDS: ATORVASTATIN 20 MG TAB PO SCH (20:49)
[2017-05-30] MEDS: LEVOFLOXACIN 500 MG PREMIX INJ 100 ML IV SCH (21:21)
[2017-05-31] VITALS: BP 152/89; PULSE 85; RESP 17; TEMP 98.6; O2SAT 96
[2017-05-31 01:44] LABS: BASOPHIL % 0.3 % (0.0-2.0); EOSINOPHIL # 0.1 TH/MM3 (0-0.4); EOSINOPHIL % 1.8 % (0.0-4.0); HEMATOCRIT 32.2 % (39.0-51.0); LYMPH % 15.9 % (9.0-44.0); LYMPHOCYTE # 1.3 TH/MM3 (1.0-4.8); MEAN CELL VOLUME 80.2 FL (80.0-100.0); MEAN CORPUSCULAR HEMOGLOBIN 27.3 PG (27.0-34.0); MEAN CORPUSCULAR HGB CONC 34.1 % (32.0-36.0); MEAN PLATELET VOLUME 9.5 FL (7.0-11.0); MONO % 7.8 % (0.0-8.0); MONOCYTE # 0.6 TH/MM3 (0-0.9); NEUT % 74.2 % (16.0-70.0); PLATELET COUNT 184 TH/MM3 (150-450); RED BLOOD COUNT 4.01 MIL/MM3 (4.50-5.90); RED CELL DISTRIBUTION WIDTH 15.4 % (11.6-17.2); WHITE BLOOD COUNT 8.1 TH/MM3 (4.0-11.0)
[2017-05-31] MEDS: POTASSIUM CHLORIDE INJ 30 MEQ in SODIUM CHLOR 0.9% 1000 ML INJ 1,000 ML IV SCH ×2 (01:46→11:10)
[2017-05-31 02:11] LABS: CALCIUM 7.6 MG/DL (8.5-10.1); CREATININE 0.65 MG/DL (0.60-1.30)
[2017-05-31] MEDS: POTASSIUM CHLOR 20 MEQ PREMIX 100 ML IV PRN ×2 (02:28→04:18)
[2017-05-31] MEDS ORDERED: LACTATED RINGER'S 1000 ML IV PRN (03:00)
[2017-05-31] MEDS ORDERED: POVIDONE IODINE 5% (ANTISEPSIS KIT) 4 APPLICATIONS EACH NARE PRN (03:00)
[2017-05-31] MEDS ORDERED: SODIUM CHLORID 0.9% 500 ML IV PRN (03:00)
[2017-05-31] MEDS ORDERED: CHLORHEXIDINE GLUCONATE 2 % 1 PACK (2 CLOTHS) TOPICAL PRN (03:00)
[2017-05-31 03:54] VITALS: BP 160/89; PULSE 80; RESP 16; TEMP 99.2; O2SAT 95
[2017-05-31] MEDS: METOCLOPRAMIDE HCL 10 MG/2 ML VIAL IV SCH ×4 (04:19→21:15)
[2017-05-31] MEDS: LOW DOSE INSULIN NOVOLIN REGULAR SUPPLEMENTAL SCALE SQ SCH ×3 (06:30→22:57)
[2017-05-31] MEDS: RESP: ALBUTEROL 2.5 MG/3 ML NEB (SCH) INH ×4 (07:46→19:43)
[2017-05-31 08:00] VITALS: BP 173/91; PULSE 86; RESP 18; TEMP 98.3; O2SAT 94
[2017-05-31] MEDS: PANTOPRAZOLE SOD 40 MG DELAYED RELEASE TAB PO SCH (08:45)
[2017-05-31] MEDS: POTASSIUM CHLORIDE 20 MEQ CONTROLLED RELEASE TAB PO SCH ×3 (09:00→21:14)
[2017-05-31 11:05] VITALS: BP 160/76; PULSE 94; RESP 18; TEMP 98.7; O2SAT 95
[2017-05-31 12:09] LABS: AMORPHOUS SEDIMENT, URINE MOD; BACTERIA, URINE RARE /hpf; BILIRUBIN, URINE NEG (NEG); BLOOD, URINE MOD (NEG); GLUCOSE,URINE 70 mg/dL (NEG); KETONE, URINE 80 mg/dL (NEG); MUCUS URINE FEW /lpf (OCC); NITRITE,URINE NEG (NEG); SQUAMOUS EPITHELIAL CELL URINE <1 /hpf (0-5); TRANSITIONAL EPI CELLS, URINE <1 /hpf; URINE COLOR YELLOW (YELLW/STRAW); URINE LEUKOCYTE ESTERASE SMALL (NEG)
[2017-05-31] MEDS: metFORMIN HCL 500 MG TAB PO SCH ×2 (12:25→19:14)
--- NOTE | 2017-05-31 13:10 | EKG ---
Date Performed: 05/31/2017 Time Performed: 03:13:20 PTAGE: 61 years EKG: Sinus rhythm . Normal ECG Since PREVIOUS TRACING , no significant change noted PREVIOUS TRACIN05/18/2017 10.30 DOCTOR: Dimas Almonte Interpretating Date/Time 05/31/2017 13:09:14
[2017-05-31 16:02] VITALS: BP 155/78; PULSE 81; RESP 18; TEMP 98.4; O2SAT 93
[2017-05-31 20:00] VITALS: BP 135/73; PULSE 85; RESP 15; TEMP 99.6; O2SAT 92
[2017-05-31] MEDS: ATORVASTATIN 20 MG TAB PO SCH (21:14)
[2017-05-31] MEDS: LEVOFLOXACIN 500 MG PREMIX INJ 100 ML IV SCH (21:15)
[2017-06-01] VITALS: BP 140/70; PULSE 85; RESP 15; TEMP 96.8; O2SAT 93
[2017-06-01] MEDS: POTASSIUM CHLORIDE 20 MEQ CONTROLLED RELEASE TAB PO SCH ×4 (03:41→21:04)
[2017-06-01] MEDS: METOCLOPRAMIDE HCL 10 MG/2 ML VIAL IV SCH ×4 (03:41→21:05)
[2017-06-01] MEDS: POTASSIUM CHLORIDE INJ 30 MEQ in SODIUM CHLOR 0.9% 1000 ML INJ 1,000 ML IV SCH ×2 (03:46→18:08)
[2017-06-01] MEDS: LOW DOSE INSULIN NOVOLIN REGULAR SUPPLEMENTAL SCALE SQ SCH ×3 (07:00→21:20)
[2017-06-01 08:17] VITALS: BP 157/82; PULSE 79; RESP 18; TEMP 98.2; O2SAT 92
[2017-06-01] MEDS: RESP: ALBUTEROL 2.5 MG/3 ML NEB (SCH) INH ×4 (08:42→20:53)
[2017-06-01] MEDS: PANTOPRAZOLE SOD 40 MG DELAYED RELEASE TAB PO SCH (10:23)
--- NOTE | 2017-06-01 11:14 | MR ---
cc: ANTOLIN GODDARD M.D. DATE 05/31/2017 PREOPERATIVE DIAGNOSIS 1. Colonic distention. 2. History of cancer of the rectosigmoid. PROCEDURE Colonoscopy to cecum with decompression of colonic ileus. POSTOPERATIVE DIAGNOSIS 1. Colonic distention. 2. History of cancer of the rectosigmoid. SURGEON Dr. Goddard. PROCEDURE The patient was placed in the left lateral decubitus position. After adequate anesthesia sedation, rectal exam confirmed the emptiness of the rectal vault. The Olympus colonoscope was introduced into the rectum and advanced very easily under direct vision through the proximal colon noting quite a bit of liquid stool and air within the colon. The anastomosis in the proximal rectum appeared to be unremarkable. Viability of the bowel was excellent throughout. A large amount of liquid stool was suctioned up to about 1500 cc. The ileocecal valve was unremarkable. After decompression the abdomen was clinically much softer to palpation. No pseudomembranes were seen. No obvious inflammatory changes were noted in the mucosa. The patient tolerated the procedure quite well and was brought to the recovery room in stable condition. MD ROCHELLE Wayne/EVAN /10:21 AM /11:05 AM
[2017-06-01 12:09] VITALS: BP 157/87; PULSE 87; RESP 17; TEMP 98.9; O2SAT 92
--- NOTE | 2017-06-01 14:43 | HHI.PR ---
Subjective Remarks C/R Surg afebrile, VSS UO good +BM/flatus Objective - Vital Signs Date Time Temp Pulse Resp B/P (MAP) Pulse Ox O2 Delivery O2 Flow Rate FiO2 06/01/17 12:09 98.9 87 17 157/87 (110) 92 05/31/17 16:04 Room Air Result Diagram: 05/31/17 0125 06/01/17 1023 Objective Remarks PE alert Abd - softer, still tympany A/P Assessment and Plan Imp: check urine cx Ab's adv diet follow KCL Salinas Barillas MD Jun 01, 2017 14:43
[2017-06-01] MEDS: POTASSIUM CHLOR 20 MEQ PREMIX 100 ML IV PRN ×2 (15:48→18:08)
[2017-06-01] MEDS: TAMSULOSIN HCL 0.4 MG CAP PO SCH (15:48)
[2017-06-01 16:40] VITALS: BP 161/86; PULSE 92; RESP 18; TEMP 99.7; O2SAT 97
[2017-06-01] MEDS: cloNIDine HCL 0.1 MG TAB PO PRN (18:08)
[2017-06-01 20:12] VITALS: BP 150/82; PULSE 84; RESP 18; TEMP 98.8; O2SAT 97
[2017-06-01] MEDS: LEVOFLOXACIN 500 MG PREMIX INJ 100 ML IV SCH (21:03)
[2017-06-01] MEDS: metFORMIN HCL 500 MG TAB PO SCH (21:04)
[2017-06-01] MEDS: ATORVASTATIN 20 MG TAB PO SCH (21:04)
[2017-06-01 23:40] VITALS: BP 153/89; PULSE 92; RESP 19; TEMP 98.9; O2SAT 95
[2017-06-02] MEDS: RESP: ALBUTEROL 2.5 MG/3 ML NEB (SCH) INH ×5 (00:42→20:44)
[2017-06-02] MEDS: METOCLOPRAMIDE HCL 10 MG/2 ML VIAL IV SCH ×3 (03:54→16:00)
[2017-06-02] MEDS: POTASSIUM CHLORIDE 20 MEQ CONTROLLED RELEASE TAB PO SCH ×4 (03:55→22:18)
[2017-06-02 08:00] VITALS: BP 195/95; PULSE 88; RESP 17; TEMP 98.8; O2SAT 93
[2017-06-02] MEDS: metFORMIN HCL 500 MG TAB PO SCH ×2 (08:20→22:18)
[2017-06-02] MEDS: PANTOPRAZOLE SOD 40 MG DELAYED RELEASE TAB PO SCH (08:20)
[2017-06-02] MEDS: TAMSULOSIN HCL 0.4 MG CAP PO SCH (08:20)
[2017-06-02] MEDS: cloNIDine HCL 0.1 MG TAB PO PRN (08:20)
[2017-06-02 08:23] LABS: BICARBONATE 25.7 MEQ/L (21.0-32.0); CALCIUM 7.6 MG/DL (8.5-10.1); CREATININE 0.68 MG/DL (0.60-1.30)
[2017-06-02] MEDS: POTASSIUM CHLOR 20 MEQ PREMIX 100 ML IV PRN ×2 (08:59→22:42)
[2017-06-02] MEDS: POTASSIUM CHLORIDE INJ 30 MEQ in SODIUM CHLOR 0.9% 1000 ML INJ 1,000 ML IV SCH ×2 (08:59→22:39)
[2017-06-02] MEDS: LOW DOSE INSULIN NOVOLIN REGULAR SUPPLEMENTAL SCALE SQ SCH ×3 (09:01→22:36)
[2017-06-02 12:00] VITALS: BP 143/77; PULSE 90; RESP 17; TEMP 98.8; O2SAT 95
[2017-06-02 16:00] VITALS: BP 142/74; PULSE 91; RESP 17; TEMP 98.7; O2SAT 97
--- NOTE | 2017-06-02 17:21 | HHI.PR ---
Subjective Remarks C/R Surg afebrile, VSS UO good +BM/flatus alexis PO Objective - Vital Signs Date Time Temp Pulse Resp B/P (MAP) Pulse Ox O2 Delivery O2 Flow Rate FiO2 06/02/17 16:00 98.7 91 17 142/74 (96) 97 05/31/17 16:04 Room Air Result Diagram: 05/31/17 0125 06/02/17 0610 Objective Remarks PE alert Abd - softer, still tympany, non-tender urine clearer A/P Assessment and Plan Imp: check urine cx Ab's adv diet follow KCL dc plans - [place] back in Salinas Barillas MD Jun 02, 2017 17:21
[2017-06-02 20:00] VITALS: BP 163/86; PULSE 93; RESP 18; TEMP 98.9; O2SAT 97
[2017-06-02] MEDS ORDERED: METOCLOPRAMIDE HCL 10 MG/2 ML VIAL IV PRN (22:00)
[2017-06-02] MEDS: LEVOFLOXACIN 500 MG PREMIX INJ 100 ML IV SCH (22:18)
[2017-06-02] MEDS: ATORVASTATIN 20 MG TAB PO SCH (22:19)
[2017-06-02 23:03] VITALS: BP 175/88; PULSE 88; RESP 18; TEMP 99.2; O2SAT 96
[2017-06-03] MEDS: POTASSIUM CHLOR 20 MEQ PREMIX 100 ML IV PRN ×3 (02:27→12:53)
[2017-06-03] MEDS: POTASSIUM CHLORIDE 20 MEQ CONTROLLED RELEASE TAB PO SCH ×3 (02:32→15:00)
[2017-06-03 03:17] VITALS: BP 168/90; PULSE 84; RESP 18; TEMP 98.9; O2SAT 94
[2017-06-03] MEDS: LOW DOSE INSULIN NOVOLIN REGULAR SUPPLEMENTAL SCALE SQ SCH ×2 (07:00→15:00)
[2017-06-03] MEDS: RESP: ALBUTEROL 2.5 MG/3 ML NEB (SCH) INH (07:27)
[2017-06-03 08:00] VITALS: BP 154/57; PULSE 67; RESP 16; TEMP 96.9; O2SAT 96
[2017-06-03] MEDS: TAMSULOSIN HCL 0.4 MG CAP PO SCH (09:04)
[2017-06-03] MEDS: PANTOPRAZOLE SOD 40 MG DELAYED RELEASE TAB PO SCH (09:04)
[2017-06-03] MEDS: metFORMIN HCL 500 MG TAB PO SCH (09:05)
[2017-06-03] MEDS: POTASSIUM CHLORIDE INJ 30 MEQ in SODIUM CHLOR 0.9% 1000 ML INJ 1,000 ML IV SCH (11:42)
[2017-06-03] MEDS ORDERED: POTA20TA5 PO (11:46)
[2017-06-03] MEDS ORDERED: TAMS5CAP PO (11:46)
--- NOTE | 2017-06-03 11:49 | HHI.FF ---
Face to Face Verification Diagnosis: (1) Cancer of rectosigmoid (colon) Physical Therapy Order: Evaluate and Treat, Improve ambulation, Strength and gait training Home Health Nursing Order: Medical education Signs/symptoms of disease process Wound care and dressing changes Aponte catheter maintenance I have seen patient Demetri Holland on 06/03/17. My clinical findings support the need for the requested home health care services because: Deconditioned w/ increased weakness Infection w/ risk of complications I certify that my clinical findings support that this patient is homebound because: Post-op weakness Unsafe to leave home unassisted Salinas Barillas MD Jun 03, 2017 11:49
--- NOTE | 2017-06-03 11:55 | HHI.PR ---
Subjective Remarks C/R Surg afebrile, VSS UO good +BM/flatus alexis PO KCL still low Objective - Vital Signs Date Time Temp Pulse Resp B/P (MAP) Pulse Ox O2 Delivery O2 Flow Rate FiO2 06/03/17 03:17 98.9 84 18 168/90 (116) 94 05/31/17 16:04 Room Air Result Diagram: 05/31/17 0125 06/03/17 0608 Objective Remarks PE alert Abd - softer, still tympany, non-tender urine clearer, lg output A/P Assessment and Plan Imp: Ab's adv diet follow KCL dc plans - [place] back in Salinas Barillas MD Jun 03, 2017 11:55
[2017-06-03 12:00] VITALS: BP 187/87; PULSE 122; RESP 18; TEMP 97.5; O2SAT 97
[2017-06-03] MEDS: cloNIDine HCL 0.1 MG TAB PO PRN (15:07)
== END 2017-06-03 17:23 | disposition home health service (06) | DRG 345 ==
LOC: N06B 13:34 → OBSVTOIN 06-03 12:11
PROVIDERS: ADMIT Colon & Rectal Surgery; ATTEND Colon & Rectal Surgery
PROC: 0D9E8ZZ Drainage of Large Intestine, Via Natural or Artificial Opening Endoscopic (ICD-10-PCS; principal; 2017-05-31 08:32)
DX: K56.7 Ileus, unspecified (principal); N39.0 Urinary tract infection, site not specified; R63.0 Anorexia; R33.9 Retention of urine, unspecified; Z85.048 Personal history of other malignant neoplasm of rectum, rectosigmoid junction, and anus
CPT/HCPCS: 74019; 74177; 80048; 81001; 82948; 84132; 85025; 85027; 87077; 87086; 87186; 93005; 94640; 94664; C9113; J1940; J1956; J2765; J3480; J7030; J7040; J7613; Q9967